=== PATIENT | male | born 1950 | race Caucasian/White ===

== ENCOUNTER 2017-06-10 11:56 | Outpatient (RCR) | payer BC | END 2017-08-10 14:50 | disposition home or self-care (01) | LOC: CARDREHAB 11:56 | DX: Z48.812 Encounter for surgical aftercare following surgery on the circulatory system (principal); Z95.5 Presence of coronary angioplasty implant and graft; Z95.1 Presence of aortocoronary bypass graft ==

== ENCOUNTER 2023-06-30 09:03 | Outpatient (RCR) | payer MEDICARE, OTHER | END 2023-07-11 | disposition home or self-care (01) | LOC: PT | DX: M51.16 Intervertebral disc disorders with radiculopathy, lumbar region (principal); M47.817 Spondylosis without myelopathy or radiculopathy, lumbosacral region ==

== ENCOUNTER 2023-08-13 07:48 | Outpatient (RCR) | payer MEDICARE, OTHER | END 2023-09-10 | disposition home or self-care (01) | LOC: PT | DX: M51.16 Intervertebral disc disorders with radiculopathy, lumbar region (principal); M47.817 Spondylosis without myelopathy or radiculopathy, lumbosacral region ==

== ENCOUNTER 2023-09-11 08:00 | Outpatient (RCR) | payer MEDICARE, OTHER | END 2023-10-11 | disposition home or self-care (01) | LOC: PT | DX: M51.16 Intervertebral disc disorders with radiculopathy, lumbar region (principal); M47.27 Other spondylosis with radiculopathy, lumbosacral region ==